=== PATIENT | female | born 1950 | race Caucasian/White ===

== ENCOUNTER 2021-06-24 02:09 | Emergency (ER) | payer MEDICARE, BC ==
[2021-06-24] MEDS ORDERED: Sodium Chloride 0.9% 1,000 ML IV ONE (02:38)
[2021-06-24] MEDS ORDERED: Ondansetron 4 MG/2 ML SDV IVPUSH ONE (02:39)
[2021-06-24] MEDS ORDERED: Famotidine 20 MG/2 ML SDV IVPUSH ONE (02:39)
[2021-06-24 03:46] LABS: ANION GAP 12.6 mEq/L (7-13); CHLORIDE,CL 103 mmol/L (98-107); SODIUM,NA 138 mmol/L (136-145)
[2021-06-24] MEDS ORDERED: GI Cocktail Oral Solution 30 ML PO ONE (04:12)
[2021-06-24] MEDS ORDERED: Nitroglycerin 0.4 MG Tab.SL SL ONE (04:43)
[2021-06-24] MEDS ORDERED: Aspirin 81 MG Tab.EC PO ONE (05:47)
== END 2021-06-24 05:56 | disposition home or self-care (01) ==
LOC: DL.ED 02:09
DX: K21.00 Gastro-esophageal reflux disease with esophagitis, without bleeding (principal); Z79.899 Other long term (current) drug therapy; Z91.041 Radiographic dye allergy status
CPT/HCPCS: 36415; 80053; 82150; 83690; 84484; 85025; 85379; 93005; 96374; 96375; 99284-25; A9270-GY; J2405; J3490; J7030